=== PATIENT | male | born 1980 | race Caucasian/White ===

== ENCOUNTER 2019-05-22 20:27 | Emergency (ER) | payer OTHER ==
[2019-05-22 20:35] VITALS: BMI 23.6
[2019-05-22] MEDS ORDERED: SODIUM CHLORIDE 0.9% 500 ML INFUS.BAG IV ONE ×2 (20:38→22:20)
[2019-05-22] MEDS ORDERED: ACETAMINOPHEN 1000 MG/100 ML VIAL (NON FORMULARY) IVPB ONE (20:38)
[2019-05-22] MEDS ORDERED: ACETAMINOPHEN INJECTION 100 ML IVPB ONE (21:01)
[2019-05-22 21:10] LABS: HEMATOCRIT 41.6 % (35.4-49); HEMOGLOBIN 14.2 GM/dl (11.7-16.9); MCH 31.3 pg (25.7-33.7); MCHC 34.1 g/dl (32.0-35.9); MEAN CELL VOLUME 91.7 fl (80-96); MEAN PLT VOLUME 8.5 fl (7.5-11.1); PLATELET COUNT 324 K/MM3 (134-434); RBC 4.53 M/mm3 (4.00-5.60); WHITE BLOOD COUNT 8.6 K/mm3 (4.0-10.8)
[2019-05-22 21:20] LABS: ALBUMIN 3.6 g/dl (3.4-5.0); BILIRUBIN,TOTAL 0.4 mg/dl (0.2-1); CALCIUM 8.2 mg/dl (8.5-10); CREATININE 0.9 mg/dl (0.55-1.3); TOT PROT 6.7 g/dl (6.4-8.2)
[2019-05-22 21:23] VITALS: BP 95/55; PULSE 91; TEMP 99.5
[2019-05-22 21:57] LABS: PLATELET ESTIMATE ADEQUATE
[2019-05-22] MEDS ORDERED: CEFTRIAXONE 2 GM in DEXTROSE 5%-WATER - 50 ML IVPB ONE (22:43)
[2019-05-22] MEDS ORDERED: VANCOMYCIN 1,000 MG in DEXTROSE 5%-WATER - 250 ML IVPB ONE (23:27)
[2019-05-22] MEDS ORDERED: VANCOMYCIN 1,000 MG VIAL (RESTRICTED TO ID ONLY) ONE (23:27)
[2019-05-23 00:10] LABS: URINE APPEARANCE CLEAR; URINE BILIRUBIN NEGATIVE (NEGATIVE); URINE COLOR YELLOW; URINE GLUCOSE (UA) NEGATIVE (NEGATIVE); URINE KETONE NEGATIVE (NEGATIVE); URINE LEUK ESTERASE NEGATIVE (NEGATIVE); URINE NITRITE NEGATIVE (NEGATIVE); URINE PROTEIN NEGATIVE (NEGATIVE); URINE UROBILINOGEN 0.2 mg/dL (0.2-1.0)
--- NOTE | 2019-05-23 00:35 | PDOC ---
Documentation entered by Suzy Dewitt SCRIBE, acting as scribe for Jessie Nunez MD. Jessie Nunez MD: This documentation has been prepared by the audraibeEsdras Maria, SCRIBE, under my direction and personally reviewed by me in its entirety. I confirm that the documentation accurately reflects all work, treatment, procedures, and medical decision making performed by me. History of Present Illness - General Chief Complaint: Diarrhea Stated Complaint: DIARRHEA, FEVER, HEADACHE - History of Present Illness Initial Comments: 05/22/19 20:47 Patient is a 39 year old with a significant PMH of a splenectomy who presents to the emergency department with fever, chills and diarrhea. Patient reports his symptoms began Robert night with a fever of 101.8, he also states having one episode of NBNB diarrhea. Pt also reports having an intermittent headache for the past week, he reports taking nyquil for his symptoms with no relief prompting him to the ER. He denies any recent nausea, vomiting, or constipation. He denies any recent chest pain or shortness of breath. He denies any recent dysuria, frequency, urgency or hematuria. Past History - Past Medical History Allergies/Adverse Reactions: Allergies Allergy/AdvReac Type Severity Reaction Status Date / Time No Known Allergies Allergy Verified 05/22/19 20:28 Home Medications: Ambulatory Orders NK [No Known Home Medication] 05/22/19 COPD: No - Psycho Social/Smoking Cessation Hx Smoking History: Former smoker Have you smoked in the past 12 months: No Number of Cigarettes Smoked Daily: 0 Information on smoking cessation initiated: No Hx Alcohol Use: (occasional) Drug/Substance Use Hx: No Substance Use Type: None Review of Systems - Review of Systems Able to Perform ROS?: Yes Comments:: 05/22/19 20:49 GENERAL/CONSTITUTIONAL: +fever. +chills. No weakness. HEAD, EYES, EARS, NOSE AND THROAT: No change in vision. No ear pain or discharge. No sore throat. CARDIOVASCULAR: No chest pain or shortness of breath. RESPIRATORY: No cough, wheezing, or hemoptysis. GASTROINTESTINAL:+diarrhea No nausea, vomiting, or constipation. GENITOURINARY: No dysuria, frequency, or change in urination. MUSCULOSKELETAL: No joint or muscle swelling or pain. No neck or back pain. SKIN: No rash NEUROLOGIC:+headache. No vertigo, loss of consciousness, or change in strength/ sensation. ENDOCRINE: No increased thirst. No abnormal weight change. HEMATOLOGIC/LYMPHATIC: No anemia, easy bleeding, or history of blood clots. ALLERGIC/IMMUNOLOGIC: No hives or skin allergy. *Physical Exam - Vital Signs Last Vital Signs Temp Pulse Resp BP Pulse Ox 100.6 F H 117 H 20 111/77 100 05/22/19 20:27 05/22/19 20:27 05/22/19 20:27 05/22/19 20:27 05/22/19 20:27 - Physical Exam 05/22/19 20:49 GENERAL: Awake, alert, and fully oriented, in no acute distress HEAD: No signs of trauma EYES: PERRLA, EOMI, sclera anicteric, conjunctiva clear ENT: Auricles normal inspection, hearing grossly normal, nares patent, oropharynx clear without exudates. Moist mucosa NECK: Normal ROM, supple, no lymphadenopathy, JVD, or masses LUNGS: Breath sounds equal, clear to auscultation bilaterally. No wheezes, and no crackles HEART: Regular rate and rhythm, normal S1 and S2, no murmurs, rubs or gallops ABDOMEN: Soft, nontender, normoactive bowel sounds. No guarding, no rebound. No masses EXTREMITIES: Normal range of motion, no edema. No clubbing or cyanosis. No cords, erythema, or tenderness NEUROLOGICAL: Cranial nerves II through XII grossly intact. Normal speech, normal gait SKIN: Warm, Dry, normal turgor, no rashes or lesions noted. ED Treatment Course - LABORATORY CBC & Chemistry Diagram: 05/22/19 20:45 05/22/19 20:45 - Medications Given in the ED: ED Medications Discontinued Medications Generic Name Dose Route Start Last Admin Trade Name Freq PRN Reason Stop Dose Admin Acetaminophen 1,000 mg 05/22/19 20:38 05/22/19 21:05 Ofirmev Injection - IVPB 05/22/19 20:39 1,000 mg ONCE ONE Administration Sodium Chloride 1,000 ml 05/22/19 20:38 05/22/19 21:05 Normal Saline - IV 05/22/19 20:39 1,000 ml ONCE ONE Administration Medical Decision Making - Medical Decision Making 05/22/19 21:10 strep negative Flu and all labs pending 05/22/19 21:21 cbc normal chem pending 05/22/19 21:27 chem is normal Pt defervesced and he feels better 05/22/19 22:12 CXR normal strep negative Pt tells me that he had his pneumococcal vaccine and booster a couple yrs ago. I will let him know he needs the booster every 5 years. We discussed the risk of meningitis, that may occur without nuchal rigidity I offered pt an LP; he will wait and see how he feels. He understands that there is no other way to rule out pneumococcal meningitis. 05/23/19 00:31 flu negatove Pt received ceftriaxone 2g and vanco 1g. He wants to go and follow with his PMD Dr. Adonis Kitchen in [place] . I spoke to Dr. Johnson's partner console assembler, who agrees pt can follow at the office tomorrow. I wanted to admit the patient for 72 hrs of prophylactic abx, given his asplenia , and awaiting his culture results. Pt will follow with PMD tomorrow AM; he understands that he remains at risk of a serious bacterial infection and that this discharge from the hospital is premature. I explained to patient that he needs to return to the ER if he feels worse, no matter where he is; pt understands. He is hoping to travel to [facility] [place] [facility]- We will provide him with all of his lab testing. 05/23/19 00:36 UA normal 05/23/19 04:08 Discharge - Discharge Information Problems reviewed: Yes Clinical Impression/Diagnosis: Fever, unspecified, Elevated LFTs, Asplenia Condition: Stable Disposition: HOME - Follow up/Referral - Patient Discharge Instructions Patient Printed Discharge Instructions: DI for Fever (Symptom) -- Adult - Post Discharge Activity
[2019-05-23 01:33] LABS: EPI CELLS NONE SEEN /HPF (0-5/HPF); HYALINE CASTS NONE SEEN /lpf (0-8); URINE RBC 0 /hpf (0-4); URINE WBC 0 /hpf (0-5)
[2019-05-23 01:34] LABS: URINE BACTERIA NON SEEN /hpf (NEGATIVE)
== END 2019-05-23 00:44 | disposition home or self-care (01) ==
LOC: FER 20:27
PROC: 3E033NZ Introduction of Analgesics, Hypnotics, Sedatives into Peripheral Vein, Percutaneous Approach (ICD-10-PCS; principal; 2019-05-22)
PROC: 3E0337Z Introduction of Electrolytic and Water Balance Substance into Peripheral Vein, Percutaneous Approach (ICD-10-PCS; 2019-05-22)
PROC: 3E03329 Introduction of Other Anti-infective into Peripheral Vein, Percutaneous Approach (ICD-10-PCS; 2019-05-22)
DX: R79.9 Abnormal finding of blood chemistry, unspecified (principal); Q89.01 Asplenia (congenital); R50.9 Fever, unspecified; Z87.891 Personal history of nicotine dependence
CPT/HCPCS: 36415; 71046-TC-FY; 80053; 81003; 85025; 87040; 87070; 87086; 87804; 87880; 99283-25; J0131